=== PATIENT | female | born 1985 | race Asian ===

== ENCOUNTER 2022-08-22 14:37 | Outpatient (CLI) | payer OTHER | END 2022-08-22 14:38 | disposition home or self-care (01) | LOC: CSHRAD 14:37 | PROVIDERS: ATTEND Family Medicine | DX: M79.671 Pain in right foot (principal); M79.89 Other specified soft tissue disorders; R93.6 Abnormal findings on diagnostic imaging of limbs ==

== ENCOUNTER 2022-09-20 14:07 | Outpatient (CLI) | payer OTHER | END 2022-09-20 14:08 | disposition home or self-care (01) | LOC: CSHRAD 14:07 | PROVIDERS: ATTEND Family Medicine | DX: M25.571 Pain in right ankle and joints of right foot (principal); M89.9 Disorder of bone, unspecified ==

== ENCOUNTER 2022-10-28 11:18 | Outpatient (CLI) | payer OTHER | END 2022-10-28 11:19 | disposition home or self-care (01) | LOC: CSHRAD 11:18 | PROVIDERS: ATTEND Family Medicine | DX: M53.3 Sacrococcygeal disorders, not elsewhere classified (principal); W19.XXXA Unspecified fall, initial encounter; S32.2XXA Fracture of coccyx, initial encounter for closed fracture | CPT/HCPCS: 72220 ==